=== PATIENT | male | born 1960 | race Caucasian/White ===

== ENCOUNTER → 2018-11-14 | Outpatient (REF) | payer OTHER ==
[2018-11-14 14:16] LABS: BASO # 0.1 10^3/uL (0.0-0.2); BASO % 0.6 % (0.0-1.0); EOS # 0.1 10^3/uL (0.0-0.50); EOS % 1.6 % (0.0-3.0); HEMATOCRIT 34.9 % (42.0-52.0); HEMOGLOBIN 11.5 g/dl (13.5-17.5); LYMPH # 1.3 10^3/uL (1.5-4.5); LYMPH % 14.1 % (24.0-44.0); MEAN CORPUSCULAR HEMOGLOBIN 31.7 pg (27.0-33.0); MEAN CORPUSCULAR VOLUME 96.1 fl (80.0-96.0); MONO # 0.9 10^3/uL (0.0-0.8); MONO % 10.2 % (0.0-5.0); NEUTROPHILS # 6.4 10^3/uL (1.8-7.7); NEUTROPHILS % 71.4 % (36.0-66.0); PLATELET COUNT, AUTOMATED 229 10^3/uL (150-450); RED BLOOD COUNT 3.63 10^6/uL (4.30-6.10)
[2018-11-14 14:29] LABS: INR 1.01; PARTIAL THROMBOPLASTIN TIME 26.4 SECONDS (25.4-37.6); PROTHROMBIN TIME 13.5 SECONDS (12.1-14.4)
[2018-11-14 15:25] LABS: ALBUMIN 3.1 GM/DL (3.2-5.2); ALT/SGPT 29 U/L (12-78); BILIRUBIN,TOTAL 0.6 MG/DL (0.2-1.0); BLOOD UREA NITROGEN 17 MG/DL (7-18); CALCIUM LEVEL 8.2 MG/DL (8.5-10.1); CARBON DIOXIDE LEVEL 30 MEQ/L (21-32); CHLORIDE LEVEL 102 MEQ/L (98-107); CREATININE FOR GFR 0.91 MG/DL (0.70-1.30); GLOMERULAR FILTRATION RATE > 60.0 (>56); GLUCOSE, FASTING 86 MG/DL (70-100); POTASSIUM SERUM 4.9 MEQ/L (3.5-5.1); SODIUM LEVEL 139 MEQ/L (136-145); TOTAL PROTEIN 6.9 GM/DL (6.4-8.2)
== END ==
LOC: M LAB REF 13:00
PROVIDERS: ATTEND Internal Medicine Pulmonary Disease
DX: C34.11 Malignant neoplasm of upper lobe, right bronchus or lung (principal)

== ENCOUNTER → 2018-11-20 | Outpatient (CLI) | payer OTHER ==
[~2018-11-20] MED LIST: BRIM1OPD OU; FOLI1TAB5 PO; GUAIFENESIN PO; MULT1TAB10 PO; OMEP20CA3 PO; PAXI40TA10 PO; PRAM0.255 PO; PRED20TA PO; STIO1AER INH; VITA500046 PO; VITA50TA43 PO; [UNRECOGNIZED DRUG - OTHER] PO; duoneb INH
--- NOTE | 2018-11-29 07:51 | REP ---
Clinical: Right upper lobe neoplasm. Technique: Axial noncontrast images from the thoracic inlet to the upper abdomen with coronal and sagittal re-formations. Comparison: 09/01/2018, 07/23/2018, 01/30/2018. Findings: Ill-defined area of opacity along the medial right apex demonstrating air bronchograms and spiculated margins has increased in size as compared with 07/23/2018 and 01/30/2018. Lesion must be considered malignant unless proven otherwise. Underlying emphysematous changes with scattered subpleural fibrosis, scarring, and mild bronchiectasis are again appreciated and similar to prior examination. The previously noted scattered patchy alveolar infiltrates on recent prior examination dated 09/01/2018 have resolved. No pleural effusion. No pneumothorax. No obvious adenopathy identified although evaluation is limited by the lack of contrast enhancement. Atherosclerotic changes to the thoracic aorta and coronary arteries noted without aortic aneurysm or cardiomegaly. No pericardial effusion. Musculoskeletal structures are intact without obvious focal osseous abnormality. Limited upper abdomen demonstrates normal bilateral adrenal glands and evidence for prior cholecystectomy. Impression: 1. Ill-defined area of consolidation in the right apex with air bronchograms and spiculated margins appears to be increased from prior examinations and must be considered malignant unless proven otherwise. 2. Previously identified scattered patchy infiltrates have resolved. 3. Moderate emphysematous changes with scattered subpleural fibrosis, scarring and bronchiectasis remains stable. Electronically Signed by Shravan Rodriguez MD 11/29/2018 07:43 A
== END ==
LOC: M RAD 12:56 → EDUNIT# 13:30
PROVIDERS: ATTEND Internal Medicine Pulmonary Disease
DX: C34.11 Malignant neoplasm of upper lobe, right bronchus or lung (principal)

== ENCOUNTER → 2019-01-07 | Outpatient (CLI) | payer OTHER ==
[~2019-01-07] MED LIST changes: +CBD OIL PO; +COMBAER6 INH; +FOLI1TAB11 PO; -FOLI1TAB5 PO; +LIDOCAINE 1% MDV 20ML VIAL As Ordered ONE
--- NOTE | 2019-01-07 12:38 | REP ---
PA chest x-ray: Single view. History: Patient is status post CT guided needle biopsy right apical soft tissue density. Comparison study: December 09, 2018. Findings: There is no evidence of pneumothorax, parenchymal hemorrhage, or other complication. Right apical density is unchanged. An [id number] catheter is noted on the left. Impression: No complication identified. Electronically Signed by King Hayes MD 01/07/2019 06:59 P
--- NOTE | 2019-01-07 18:42 | REP ---
CT-GUIDED RIGHT UPPER LOBE LUNG BIOPSY Procedure was performed under the direct supervision of Dr. Hayes. The patient has a history of ill-defined area of consolidation in the right apex seen on a previous CT scan dated 11/20 1018. The patient has a history of lung carcinoma. This area was was shown to be hypermetabolic on a previous PET scan performed at [facility] on 11/05/2018. The risks and benefits of the procedure were explained to patient and informed consent was obtained. The right upper lobe lung mass was localized using CT guidance. The skin was prepped and draped in a sterile fashion. 1% lidocaine was used as a local anesthetic. Using CT guidance a 19/20 gauge coaxial needle biopsy system was inserted and advanced into the mass. Six passes yielding four core biopsy samples were obtained and sent to lab. The patient tolerated the procedure well and there were no immediate complications. After the appropriate amount of monitored convalescence the patient was discharged from the department. Reviewed by ORLANDO Best 01/07/2019 03:16 P Electronically Signed by King Hayes MD 01/07/2019 06:34 P
== END ==
LOC: M RADPRO 10:24
PROVIDERS: ATTEND Internal Medicine Pulmonary Disease
DX: R91.8 Other nonspecific abnormal finding of lung field (principal); Z85.118 Personal history of other malignant neoplasm of bronchus and lung; Z79.891 Long term (current) use of opiate analgesic; Z79.899 Other long term (current) drug therapy; Z88.6 Allergy status to analgesic agent

== ENCOUNTER → 2019-02-02 | Outpatient (CLI) | payer OTHER ==
[~2019-02-02] MED LIST changes: -LIDOCAINE 1% MDV 20ML VIAL As Ordered ONE
== END ==
LOC: M SLEEP HO 10:44
PROVIDERS: ATTEND Internal Medicine Pulmonary Disease
DX: G47.30 Sleep apnea, unspecified (principal)

== ENCOUNTER → 2019-03-03 | Outpatient (CLI) | payer OTHER ==
--- NOTE | 2019-03-05 20:19 | SLEEPCENT ---
DATE OF PROCEDURE: 03/03/2019 ORDERED BY: Dr. Roach Nocturnal polysomnography was performed for the titration of pressure therapy in this patient with a clinical diagnosis of obstructive sleep apnea syndrome confirmed by home testing revealing a respiratory event index of 57.7. For testing, the patient was fit with a [employer] Simplus full face mask of small size, 4 cm of water pressure were applied to the circuit and the lights were extinguished. 7 hours and 33 minutes of data were reviewed. There were 336 minutes of sleep identified. Sleep latency was prolonged at 36.5 minutes. Rapid eye movement (REM) latency was prolonged at 331 minutes. Sleep architecture initially showed poor progression with some fragmentation late in the study. On optimal pressure therapy, the patient achieved REM sleep and overall sleep efficiency of 75.5%. The electrocardiogram showed a sinus rhythm with small complexes, average heart rate 78 beats per minute. EEG showed normal waveforms for awake and sleep. Respiratory events were best palliated with continuous positive airway pressure (CPAP) at a pressure of +18. Some persistent activity was appreciated in the limb EMG leads. The limb movement arousal index was 8.8. IMPRESSION: Obstructive sleep apnea syndrome (G47.33). RECOMMENDATIONS: Nightly use of pressure therapy 18 cm of water.
== END ==
LOC: M SLEEP 19:30
PROVIDERS: ATTEND Internal Medicine Pulmonary Disease
DX: G47.33 Obstructive sleep apnea (adult) (pediatric) (principal)